=== PATIENT | female | born 1980 | race Caucasian/White ===

== ENCOUNTER 2020-05-09 09:36 | Emergency (ER) | payer BC, OTHER ==
[~2020-05-09] VITALS: Ht 172.7 cm; Wt 108.8 kg
--- NOTE | 2020-05-09 10:03 | ED General ---
General Chief Complaint: Respiratory Problems Stated Complaint: SOB; COVID+ Nursing Triage Note: Patient reports she began having symptoms of cough, shortness of breath, and fever 10 days ago, states she tested positive for COVID-19 9 days ago. She reports some lingering cough, states no fevers for 2 days, states her shortness of breath with activity and energy levels have worsened. Nursing Sepsis Screen: Possible Severe Sepsis Risk Source of Information: Patient Exam Limitations: No Limitations History of Present Illness Date Seen by Provider: May 09, 2020 Time Seen by Provider: 09:50 Initial Comments Patient is a 39-year-old female with 10 days of cough, shortness of breath and fever who presents with persistent shortness of breath with mild exertion. Patient diagnosed with COVID 9 days ago. She states she has not improved and continues to feel fatigued and short of breath with minimal activity. She denies dizziness lightheadedness palpitations, nausea, vomiting. No abdominal pain or diarrhea. No other acute symptoms or complaints. Patient denies history of asthma. Timing/Duration: 1/2 Hour, 1 Week, Getting Worse Severity: Mild Modifying Factors: improves with Rest Associated Systoms: Cough, Loss of Appetite, Malaise, Shortness of Air, Weakness Allergies and Home Medications Allergies Coded Allergies: No Known Drug Allergies (Unverified , 05/09/20) Patient Home Medication List Home Medication List Reviewed: Yes Review of Systems Review of Systems Constitutional: see HPI EENTM: see HPI Respiratory: see HPI Cardiovascular: see HPI Genitourinary: see HPI Musculoskeletal: see HPI Skin: see HPI Psychiatric/Neurological: See HPI Hematologic/Lymphatic: See HPI Immunological/Allergic: food allergy All Other Systems Reviewed Negative Unless Noted: Yes Past Rtcfmbl-Lsczle-Dktscj Hx Past Med/Social Hx: Reviewed Nursing Past Med/Soc Hx Patient Social History Alcohol Use: Denies Use Recreational Drug Use: No 2nd Hand Smoke Exposure: No Recent Foreign Travel: No Contact w/Someone Who Travel: No Recent Infectious Disease Expo: Yes Recent Hopitalizations: No Physical Abuse: No Sexual Abuse: No Mistreated: No Fear: No Seasonal Allergies Seasonal Allergies: No Past Medical History Surgeries: Yes Orthopedic Respiratory: No Cardiac: No Neurological: No Genitourinary: No Gastrointestinal: No Musculoskeletal: No Endocrine: No HEENT: No Cancer: No Psychosocial: No Integumentary: No Physical Exam Vital Signs Vital Signs - First Documented 05/09/20 09:46 Temp 36.8 Pulse 98 Resp 22 B/P (MAP) 155/78 (103) Pulse Ox 94 O2 Delivery Room Air Capillary Refill : Less Than 3 Seconds Height, Weight, BMI Height: '" Weight: lbs. oz. kg; 36.00 BMI Method: General Appearance: No Apparent Distress Eyes: Bilateral Eye Normal Inspection, Bilateral Eye PERRL, Bilateral Eye EOMI HEENT: PERRL/EOMI, Normal ENT Inspection, Pharynx Normal, Moist Mucous Membranes Neck: Full Range of Motion, Non Tender, Supple Respiratory: Chest Non Tender Cardiovascular: Regular Rate, Rhythm, No Edema, No Murmur Gastrointestinal: Soft Back: Normal Inspection Neurologic/Psychiatric: Alert, Oriented x3, No Motor/Sensory Deficits Skin: Normal Color Lymphatic: No Adenopathy Focused Exam Sepsis Stage: Ruled Out Progress/Results/Core Measures Suspected Sepsis Recent Fever Within 48 Hours: No Infection Criteria Present: Documented Infection New/Unexplained Altered Menta: No Sepsis Screen: Possible Severe Sepsis Risk SIRS Temperature: Pulse: 98 Respiratory Rate: 22 Blood Pressure 155 /78 Mean: 103 Results/Orders My Orders Orders - AYDIN MURPHY DO Chest 1 View Ap/Pa Only (05/09/20 09:51) Vital Signs/I&O 05/09/20 09:46 Temp 36.8 Pulse 98 Resp 22 B/P (MAP) 155/78 (103) Pulse Ox 94 O2 Delivery Room Air Capillary Refill : Less Than 3 Seconds 2 Blood Pressure Mean: 103 Departure Communication (Admissions) Chest x-ray: No acute cardiopulmonary disease on preliminary ED review Patient on COVID positive with persistent fatigue and shortness of breath with exertion. Patient's O2 saturations are consistently above 90% patient was able to walk from parking lot to ER without having to stop.. She denies history of asthma or chronic lung disease. She has not been taking any medications for her current symptoms. Chest x-ray reviewed and nondiagnostic. Will continue supportive half-way monitoring with PCP follow-up as needed. Return precautions reviewed. Patient verbalizes understanding agreement discharge instructions prior to departure. Impression Primary Impression: COVID-19 Disposition: 01 HOME, SELF-CARE Condition: Stable Departure-Patient Inst. Decision time for Depature: 10:05 Patient Instructions: Coronavirus Disease 2019 (COVID-19) Overview Add. Discharge Instructions: Please increase daily fluids and take and take newly prescribed medications as directed. Use a digital pulse oximeter to chair oxygen levels remained above 90%. Return to the ED if worsening or concerning symptoms. Continue home wilver rantine until symptom-free for at least 3 days. All discharge instructions reviewed with patient and/or family. Voiced understa nding. Scripts Azithromycin (Zithromax) 250 Mg Tablet 250 MG PO UD, #6 TAB TAKE 2 TABLETS TODAY, THEN TAKE 1 TABLET DAILY FOR 4 MORE DAYS Prov: AYDIN MURPHY DO 05/09/20 Albuterol Sulfate (PROAIR HFA) 1 Puff Puff 2 PUFF IH Q4H, #1 PUFF 1 PUFF = 90 MCG Prov: AYDIN MURPHY DO 05/09/20 Prednisone (Prednisone) 20 Mg Tab 40 MG PO DAILY, #6 TAB 0 Refills Prov: AYDIN MURPHY DO 05/09/20 AYDIN MURPHY DO May 09, 2020 10:03
[2020-05-09] MEDS ORDERED: PRD20T PO (10:08)
[2020-05-09] MEDS ORDERED: AZIT250T PO (10:08)
[2020-05-09] MEDS ORDERED: RT-ALBUINH IH (10:08)
--- NOTE | 2020-05-09 10:08 | Diagnostic Imaging Report ---
INDICATION: Shortness of breath. FINDINGS: There are abnormal bilateral predominantly basilar interstitial opacities compatible with bilateral interstitial pneumonia. There is no dense alveolar consolidation or evidence of an effusion. There is pneumothorax. Heart size is appropriate and pulmonary vascularity appears appropriate. IMPRESSION: Abnormal bilateral interstitial opacities compatible with a bilateral interstitial pneumonia. Dictated by: Dictated on workstation # [id number]
[2020-05-09 10:37] VITALS: BP 138/84
== END 2020-05-09 10:35 | disposition home or self-care (01) ==
LOC: ER FS 09:43
DX: U07.1 COVID-19 (principal)
CPT/HCPCS: 71045